=== PATIENT | female | born 1970 | race Caucasian/White ===

== ENCOUNTER → 2020-09-09 11:38 | Outpatient (CLI) | payer BC, SELFPAY ==
--- NOTE | ~2020-09-09 | MM_ITS ---
EXAMINATION: MM screening zehra BI w ashwini HISTORY: Screening mammogram TECHNIQUE: Craniocaudal and mediolateral oblique 3-D tomosynthesis images were obtained and synthetic 2-D images were generated. CAD analysis was submitted and interpreted. COMPARISON: No prior mammogram is available for comparison at this institution. BREAST PARENCHYMAL COMPOSITION: There are scattered areas of fibroglandular density. FINDINGS: RIGHT BREAST: There are obscured masses in the middle and posterior third of the upper outer quadrant . No suspicious architectural distortion or calcification are identified. LEFT BREAST: There is no evidence of suspicious mass, calcification, or architectural distortion to s uggest malignancy. IMPRESSION: 1. Obscured right breast masses. 2. Additional mammographic views and possible breast ultrasound are recommended. BI-RADS Category 0: Incomplete: Needs additional imaging evaluation. Reviewed, dictated and finalized at location A. IMPRESSION: 1. Obscured right breast masses. 2. Additional mammographic views and possible breast ultrasound are recommended . BI-RADS Category 0: Incomplete: Needs additional imaging evaluation.
== END ==
PROVIDERS: PCP Internal Medicine; Visit Provider Internal Medicine
DX: Z12.31 Encounter for screening mammogram for malignant neoplasm of breast (principal); R92.8 Other abnormal and inconclusive findings on diagnostic imaging of breast
CPT/HCPCS: 77063; 77067

== ENCOUNTER 2020-09-13 11:12 | Outpatient (CLI) | payer BC, SELFPAY ==
--- NOTE | ~2020-09-13 | MMUS_ITS ---
EXAMINATION: MM diagnostic mammo unilat RT, US breast RT limited HISTORY: Obscured right breast masses on screening mammogram TECHNIQUE: Additional 3-D tomosynthesis images of the right breast were performed and synthetic 2-D i mages were generated. CAD analysis was submitted and interpreted. High resolution limited right breas t ultrasound was performed. COMPARISON: 09/09/2020 FINDINGS: MAMMOGRAPHIC FINDINGS: There is a 7 mm oval, obscured, equal density mass in the middle third of the breast at the 11:00 loc ation 6 cm from the nipple. ULTRASOUND: There is a 4 mm cyst at the 11:00 location 8 cm from the nipple and a 3 mm cyst at the 12:00 location 2 cm from the nipple. No suspicious cystic or solid mass is identified. IMPRESSION: 1. No mammographic or sonographic evidence of malignancy. 2. Recommend routine screening mammography in one year. BI-RADS Category 2: Benign finding(s). Reviewed, dictated and finalized at location A. IMPRESSION: 1. No mammographic or sonographic evidence of malignancy. 2. Recommend routine screening mammography in one year. BI-RADS Category 2: Benign finding(s).
== END 2020-09-13 11:13 | disposition home or self-care (01) ==
LOC: ANHIMG 11:15
PROVIDERS: PCP Internal Medicine; Visit Provider Internal Medicine
DX: R92.8 Other abnormal and inconclusive findings on diagnostic imaging of breast (principal); N60.01 Solitary cyst of right breast
CPT/HCPCS: 76642; 77065

== ENCOUNTER 2021-11-01 18:57 | Emergency (ER) | payer BC, SELFPAY ==
[2021-11-01 19:13] VITALS: BP 154/89; PULSE 84; RESP 18; TEMP 36.6; O2SAT 98
--- NOTE | 2021-11-01 19:46 | ED.GENADULT ---
HPI - General Adult General Chief complaint: Epistaxis Stated complaint: nose bleed Source: patient Mode of arrival: ambulatory Limitations: no limitations History of Present Illness HPI narrative: Patient is a 51-year-old female who presents to the [facility] via POV for an evaluation of a nosebleed that she experienced today. Patient states her nosebleed at 1 PM and 6 PM. She states the bleeding was bright red blood. Patient reports having severe anxiety and was concerned something may be wrong prompting today's visit. Applied pressure resolved bleeding. She does not identify aggravating factors. Denies using intranasal sprays. Related Data Home Medications Medication Instructions Recorded Confirmed amitriptyline [Elavil] 10 mg PO BID 11/01/21 11/01/21 citalopram [Celexa] 40 mg PO DAILY 11/01/21 11/01/21 diltiazem HCl [Cardizem CD] 180 mg PO DAILY 11/01/21 11/01/21 fenofibric acid (choline) 135 mg PO DAILY 11/01/21 11/01/21 pantoprazole [Protonix] 40 mg PO DAILY 11/01/21 11/01/21 Allergies Allergy/AdvReac Type Severity Reaction Status Date / Time No Known Allergies Allergy Verified 11/01/21 19:38 Review of Systems Review of Systems: Denies fever, chills, sweats, change in appetite, headaches, poor p.o. intake, dizziness, paresthesias, weakness, chest pain, palpitations, skin color changes, shortness of breath PMFSH Past Medical History Medical History (Updated 11/01/21 @ 19:51 by Carlos Vargas, [facility], ) Anxiety GERD (gastroesophageal reflux disease) Hyperlipidemia Hypertension Comments I have reviewed and agree with the patient's past medical, surgical, social, and family hx as documented by the RN. There is no relevant family history pertinent to the presenting complaint. Exam Narrative: GENERAL: Well-appearing, well-nourished, and in no acute distress. HEAD: Normocephalic, atraumatic. No sinus tenderness or facial swelling appreciated. EYES: PERRLA and EOMI. No evidence of erythema, swelling, or drainage. ENT: Bilateral external ears and ear canals normal. Bilateral TMs are normal.No TM perforation. R NARE CLEAR. SEPTUM OF LEFT NARE IS MODERATELY EXCORIATED WITH CRUSTED BLOOD. Nares clear, no rhinorrhea or epistaxis. Bilateral turbinates without erythema/ swelling. Mucous membranes moist and pink. Uvula is midline without erythema and swelling. No evidence of petechial rash, cobblestoning, lesions, ulcers, erythema, swelling, exudates, peritonsillar abscess, tenting, or drooling. Breath odor and voice normal. NECK: Supple. No Lymphadenopathy or nuchal rigidity appreciated. CHEST: Bilateral lung bravo are clear to auscultation. No respiratory distress. No evidence of cough or pleuritic cp upon examination. HEART: Regular rate and rhythm. No murmur, gallop, or rub heard. EXTREMITIES: Normal range of motion. No edema. SKIN: Warm, dry, no rash. NEURO: No focal deficits. Alert and oriented x3. Course Course Level of Care: Express Care Visit Vital Signs Vital signs: Vital Signs Temperature 98 F 11/01/21 19:13 Pulse Rate 84 11/01/21 19:13 Respiratory Rate 18 11/01/21 19:13 Blood Pressure 154/89 H 11/01/21 19:13 Pulse Oximetry 98 11/01/21 19:13 Temperature 98 F 11/01/21 19:13 Pulse Rate 84 11/01/21 19:13 Respiratory Rate 18 11/01/21 19:13 Blood Pressure 154/89 H 11/01/21 19:13 Pulse Oximetry 98 11/01/21 19:13 Due to an elevated blood pressure, I had a detailed discussion with the patient and/or guardian regarding the need for follow-up with their primary care provider within the next 3-4 days. Patient verbalized understanding and agreed. Medical Decision Making Differential Diagnosis Differential Diagnosis: epistaxis, sinusitis, allergic rhinitis Medical Records Medical records reviewed: Yes I reviewed the external patient's medical records. Vital Signs Vital Signs: Vital Signs Temperature 98 F 11/01/21 19:13 Pulse Rate 84 11/01/21 19
== END 2021-11-01 19:54 | disposition home or self-care (01) ==
PROVIDERS: Emergency Provider Nurse Practitioner Family; PCP Internal Medicine
DX: R04.0 Epistaxis (principal); K21.9 Gastro-esophageal reflux disease without esophagitis; E78.5 Hyperlipidemia, unspecified; I10 Essential (primary) hypertension; F41.9 Anxiety disorder, unspecified
CPT/HCPCS: 99211; G0463

== ENCOUNTER 2021-11-06 15:04 | Emergency (ER) | payer BC, SELFPAY ==
[2021-11-06] VITALS (13 sets, daily range): BP systolic 136–160; BP diastolic 79–102; PULSE 88–171; RESP 17–36; O2SAT 92–98
--- NOTE | ~2021-11-06 | XR_ITS ---
EXAMINATION: XR chest 1V portable INDICATION: Tachycardia TECHNIQUE: Portable AP chest at 1530 hours COMPARISON: None available FINDINGS: The lungs are free of acute opacities. There is no pleural effusion or pneumothorax. The ca rdiomediastinal silhouette is normal. IMPRESSION: 1. No acute cardiopulmonary abnormality. Reviewed, dictated and finalized at location A.
[2021-11-06] MEDS: LORazepam INJ (*CRX) 2 MG/ML VIAL 1 MG IV PUSH (15:26)
--- NOTE | 2021-11-06 15:26 | ECG_ITS ---
Measurements Intervals [place] Rate: 170 P: FL: 0 QRS: 31 QRSD: 100 T: 153 QT: 266 QTc: 448 Interpretive Statements SUPRAVENTRICULAR TACHYCARDIA LOW QRS VOLTAGE IN LIMB LEADS VOLTAGE CRITERIA FOR LVH ST ELEVATION IN SEPTAL LEADS- CONSIDE ACUTE INFARCT OR REPOLARIZATION ABNORMALITY BORDERLINE ST-T WAVE ABNORMALITY- LAT/HIGH LAT LEADS ABNORMAL ECG Electronically Signed On 11-06-2021 16:32:34 CDT by Jeremy Truong D.O.
--- NOTE | 2021-11-06 15:27 | ED.ARRPALP ---
HPI - Arrhythmia/Palpitations General Chief Complaint: Arrhythmia/Palpitations Stated Complaint: palpitations Time Seen by Provider: 11/06/21 15:13 Source: patient Mode of arrival: ambulatory Limitations: no limitations History of Present Illness HPI narrative: Patient is 51 years old white female presented to the ED with sudden onset of palpitation 50 minutes prior to arrival to the emergency room. Patient was distressed, going to a vacation in 1 hour. She denies chest pain or shortness of breath. History of SVT, anxiety and depression currently on Cardizem CD 180 mg once a day for SVT controlled Related Data Home Medications Medication Instructions Recorded Confirmed amitriptyline [Elavil] 10 mg PO BID 11/01/21 11/01/21 citalopram [Celexa] 40 mg PO DAILY 11/01/21 11/01/21 diltiazem HCl [Cardizem CD] 180 mg PO DAILY 11/01/21 11/01/21 fenofibric acid (choline) 135 mg PO DAILY 11/01/21 11/01/21 pantoprazole [Protonix] 40 mg PO DAILY 11/01/21 11/01/21 Allergies Allergy/AdvReac Type Severity Reaction Status Date / Time No Known Allergies Allergy Verified 11/01/21 19:38 Review of Systems Review of Systems: All systems reviewed & are unremarkable except as noted in HPI and below PMFSH Past Medical History Medical History Anxiety GERD (gastroesophageal reflux disease) Hyperlipidemia Hypertension Exam Narrative: General appearance: Well-developed, well-nourished, anxious and panicking Skin: Normal color Head: Normocephalic, nontraumatic Eyes: Clear conjunctiva ENT: Oropharynx normal, ears normal, nose normal Neck: Supple, nontender Chest and respiratory: Airway patent, no respiratory distress, no accessory muscle use Heart: Tachycardia Abdomen: Soft, nontender, no organomegaly, quiet bowel sounds Vascular: Normal peripheral pulses, normal capillary refill. Musculoskeletal: Normal range of motion, nontender back Neurologic: Alert and oriented ?3, [employer] is normal as tested, no gross motor deficit Course Course Emergency Course: Patient presents with anxiety and SVT at 175 bpm, modified Valsalva maneuver, heart rate went down to sinus tachycardia at 115 bpm, patient feels much better, Ativan 1 mg IV given, heart rate was still sinus tachycardia at 120, blood pressure was elevated 60/100, Lopressor 5 mg IV every 5 minutes x 2 was given, heart rate currently is 90 bpm, blood pressure 138/80. Patient feeling much better and ready to go. Patient currently on Cardizem CD 180 mg once a day, I plan to increase the dose to to 40 mg once a day and to follow-up with her medical administrative when she comes back from the vacation. Vital Signs Vital signs: Vital Signs Pulse Rate 160 H 11/06/21 15:12 Respiratory Rate 33 H 11/06/21 15:12 Blood Pressure 142/79 H 11/06/21 15:12 Pulse Oximetry 97 11/06/21 15:12 Pulse Rate 92 11/06/21 16:08 Respiratory Rate 18 11/06/21 16:08 Blood Pressure 139/88 11/06/21 16:08 Pulse Oximetry 94 11/06/21 16:08 Procedures Other Procedure Procedure 1: Other Procedure: Modified Valsalva maneuver, SVT converted to sinus tachycardia. 15 minutes time consumed. MDM - Arrhythmia/Palpitations MDM Narrative Medical decision making narrative: SVT Differential Diagnosis Differential diagnosis: Likely palpitations, anxiety and supraventricular tachycardia Lab Data Result diagrams: 11/06/21 15:38 11/06/21 15:37 Labs: Lab Results 11/06/21 11/06/21 11/06/21 Range/Units 15:37 15:37 15:38 WBC 7.5 (4.5-10.0) K/mm3 RBC 4.95 (4.2-5.4) M/mm3 Hgb 15.7 H (12.0-15.0) g/dL Hct 47.3 H (37.0-47.0) %
[2021-11-06 15:45] LABS: Basophils Absolute Auto 0.1 K/mm3 (0.0-0.1); Basophils Percent Auto 0.7 % (0.2-1.2); Eosinophils Absolute Auto 0.1 K/mm3 (0-0.3); Eosinophils Percent Auto 0.8 % (0-4.4); Hematocrit 47.3 % (37.0-47.0); Hemoglobin 15.7 g/dL (12.0-15.0); Immature Granulocyte Absolute 0.02 K/mm3 (0.00-0.031); Immature Granulocyte Percent A 0.3 % (0-0.5); Lymphocytes Absolute Auto 2.68 K/mm3 (0.9-3.2); Lymphocytes Percent Auto 35.6 % (18.3-44.2); Mean Corpuscular HGB Conc 33.2 g/dl (32-36); Mean Corpuscular Hemoglobin 31.7 pg (26-34); Mean Corpuscular Volume 95.6 fl (80-100); Monocytes Absolute Auto 0.4 K/mm3 (0.1-0.6); Monocytes Percent Auto 5.3 % (2.6-8.5); Neutrophils Absolute Auto 4.3 K/mm3 (1.3-6.7); Neutrophils Percent Auto 57.3 % (45.5-73.1); Platelet Count Result 257 k/mm3 (150-375); Red Blood Count 4.95 M/mm3 (4.2-5.4); Red Cell Distribution Width 13.2 % (11.5-14.5); White Blood Count 7.5 K/mm3 (4.5-10.0)
[2021-11-06] MEDS: METOPROLOL TARTRATE INJ 5 MG/5 ML VIAL IV PUSH ×2 (15:53→16:02)
[2021-11-06 15:56] LABS: Alanine Aminotransferase 26 U/L (6-35); Albumin Level 4.6 g/dL (3.5-5.1); Alkaline Phosphatase 55 U/L (38-126); Anion Gap 11 mmol/L (8-16); Aspartate Amino Transferase 33 U/L (14-36); Bilirubin,Total 0.4 mg/dL (0.2-1.3); Blood Urea Nitrogen 15 mg/dL (7-17); Calcium 9.3 mg/dL (8.4-10.2); Carbon Dioxide 22 mmol/L (22-30); Chloride 110 mmol/L (98-107); Estimated CRCL calculation 54 ml/min; Estimated Glomerular Filt Rate 58; Glucose 135 mg/dL (65-110); Potassium 3.4 mmol/L (3.4-5.0); Sodium 143 mmol/L (137-145)
--- NOTE | 2021-11-06 15:57 | PC.NURSE ---
per EDP, metropolol q5mins first given at 1557
[2021-11-06 15:59] LABS: Prothrombin Time 13.1 Seconds (11.1-14.7)
--- NOTE | 2021-11-06 16:07 | PC.NURSE ---
2nd dose of metoprolol IVP per EDP
--- NOTE | 2021-11-06 16:11 | ECG_ITS ---
Measurements Intervals [place] Rate: 92 P: 64 [place]: 223 QRS: 18 QRSD: 87 T: 70 QT: 383 QTc: 475 Interpretive Statements SINUS RHYTHM WITH FIRST DEGREE AV BLOCK BORDERLINE R WAVE PROGRESSION, ANTERIOR LEADS BORDERLINE ST-T WAVE ABNORMALITY- HIGH LATERAL LEADS BASELINE ARTIFACT- V5 ABNORMAL ECG Electronically Signed On 11-06-2021 16:31:14 CDT by Jeremy Truong D.O.
[2021-11-06 16:13] LABS: NT Pro B Type Natriuretic Pept 129 pg/mL (5-100)
[2021-11-06 16:15] LABS: Troponin I < 0.012 ng/mL (0.000-0.034)
--- NOTE | 2021-11-06 16:15 | PC.NURSE ---
Per EDP Chamberlain, do not give 3rd dose of 5mg metoprolol.
== END 2021-11-06 16:53 | disposition home or self-care (01) ==
PROVIDERS: Emergency Provider Emergency Medicine; PCP Internal Medicine
DX: I47.1 Supraventricular tachycardia (principal); I10 Essential (primary) hypertension; F41.9 Anxiety disorder, unspecified; E78.5 Hyperlipidemia, unspecified; K21.9 Gastro-esophageal reflux disease without esophagitis; F32.A Depression, unspecified; R94.31 Abnormal electrocardiogram [ECG] [EKG]
CPT/HCPCS: 36415; 71045; 80053; 83880; 84484; 85025; 85610; 85730; 93005; 96374; 96375; 99284; J2060

== ENCOUNTER 2022-03-20 15:31 | Emergency (ER) | payer BC, SELFPAY ==
[2022-03-20 16:01] VITALS: BP 155/93; PULSE 93; RESP 18; TEMP 36.7; O2SAT 98
--- NOTE | 2022-03-20 16:58 | ED.GENADULT ---
HPI - General Adult General Chief complaint: Upper Respiratory Infection Stated complaint: fatigue,runny nose History of Present Illness HPI narrative: Patient states, I waited too long and just wanted a COVID test . She refused HPI and detailed examination. Related Data Home Medications Medication Instructions Recorded Confirmed amitriptyline 10 mg tablet 10 mg PO BID 11/01/21 03/20/22 citalopram 40 mg tablet (Celexa) 40 mg PO DAILY 11/01/21 03/20/22 diltiazem HCl 180 mg 180 mg PO DAILY 11/01/21 03/20/22 capsule,extended release 24 hr (Cardizem CD) fenofibric acid (choline) 135 mg 135 mg PO DAILY 11/01/21 03/20/22 capsule,delayed release Allergies Allergy/AdvReac Type Severity Reaction Status Date / Time No Known Allergies Allergy Verified 03/20/22 16:10 [facility] Past Medical History Medical History Anxiety GERD (gastroesophageal reflux disease) Hyperlipidemia Hypertension Exam Narrative: GENERAL: Well-appearing, well-nourished, and in no acute distress. HEAD: Normocephalic, atraumatic. No facial swelling appreciated. EYES: PERRLA and EOMI. No evidence of erythema, swelling, or drainage. ENT: Breath odor and voice normal. RESPIRATORY: No evidence of cough or pleuritic cp. EXTREMITIES: Normal range of motion. No edema. SKIN: Warm, dry, no rash. NEURO: No focal deficits. Alert and oriented x3. Course Course Emergency Course: The patient/guardian displays adequate decision making capability and despite a detailed discussion of alternatives, benefits, risks, and consequences refuses HPI and examination. Level of Care: Express Care Visit Vital Signs Vital signs: Vital Signs Temperature 98.1 F 03/20/22 16:01 Pulse Rate 93 03/20/22 16:01 Respiratory Rate 18 03/20/22 16:01 Blood Pressure 155/93 H 03/20/22 16:01 Pulse Oximetry 98 03/20/22 16:01 Oxygen Delivery Room Air 03/20/22 16:01 Temperature 98.1 F 03/20/22 16:01 Pulse Rate 93 03/20/22 16:01 Respiratory Rate 18 03/20/22 16:01 Blood Pressure 155/93 H 03/20/22 16:01 Pulse Oximetry 98 03/20/22 16:01 Oxygen Delivery Room Air 03/20/22 16:01 Medical Decision Making Differential Diagnosis Differential Diagnosis: URI, COVID, INFLUENZA Vital Signs Vital Signs: Vital Signs Temperature 98.1 F 03/20/22 16:01 Pulse Rate 93 03/20/22 16:01 Respiratory Rate 18 03/20/22 16:01 Blood Pressure 155/93 H 03/20/22 16:01 Pulse Oximetry 98 03/20/22 16:01 Oxygen Delivery Room Air 03/20/22 16:01 Temperature 98.1 F 03/20/22 16:01 Pulse Rate 93 03/20/22 16:01 Respiratory Rate 18 03/20/22 16:01 Blood Pressure 155/93 H 03/20/22 16:01 Pulse Oximetry 98 03/20/22 16:01 Oxygen Delivery Room Air 03/20/22 16:01 Due to an elevated blood pressure, I had a detailed discussion with the patient and/or guardian regarding the need for follow-up with their primary care provider within the next 3-4 days. Patient verbalized understanding and agreed. Lab Data Lab results narrative: RAPID COVID NEGATIVE Labs: Lab Results 03/20/22 Range/Units 16:08 POC SARS CoV-2 Ag Negative (Negative) Critical Care Time Critical Care Time Critical Care Time: No Discharge Plan Discharge Clinical Impression: Encounter for laboratory testing for COVID-19 virus Patient Disposition: Other Condition: Stable Prescriptions: No Action citalopram [Celexa] 40 mg Tablet 40 mg PO DAILY diltiazem HCl [Cardizem CD] 180 mg Capsule,Extended Release 24hr 180 mg PO DAILY amitriptyline [Elavil] 10 mg Tablet 10 mg PO BID fenofibric acid (choline) 135 mg capsule,delayed release(DR/EC) 135 mg PO DAILY Follow-up/Referrals: Allan,Bryson Nieto MD [Primary Care Provider] - Time of Disposition: 16:58
== END 2022-03-20 16:58 | disposition left against medical advice (07) ==
PROVIDERS: Emergency Provider Nurse Practitioner Family; PCP Internal Medicine
DX: Z20.822 Contact with and (suspected) exposure to COVID-19 (principal); F41.9 Anxiety disorder, unspecified; K21.9 Gastro-esophageal reflux disease without esophagitis; E78.5 Hyperlipidemia, unspecified; I10 Essential (primary) hypertension
CPT/HCPCS: 87426; 99213; C9803; G0463

== ENCOUNTER 2022-10-25 16:22 | Emergency (ER) | payer BC, SELFPAY ==
--- NOTE | 2022-10-25 16:24 | ED.GENADULT ---
HPI - General Adult General Chief complaint: Eye Problems Stated complaint: Rt Eye Irritation Time Seen by Provider: 10/25/22 16:24 Source: patient Mode of arrival: ambulatory Limitations: no limitations History of Present Illness HPI narrative: 52-year-old female patient presents to the [facility] with complaints of right eye pain that started yesterday. Patient states that she did sleep with her contacts in last night when she took that out morning started having pain towards upper portion of her eyeball. Denies any discharge but states that she has been having sensitivity to light and pain and feels like there is something in her eye. Related Data Home Medications Medication Instructions Recorded Confirmed amitriptyline 10 mg tablet 10 mg PO BID 11/01/21 10/25/22 citalopram 40 mg tablet (Celexa) 40 mg PO DAILY 11/01/21 10/25/22 diltiazem HCl 180 mg 180 mg PO DAILY 11/01/21 10/25/22 capsule,extended release 24 hr (Cardizem CD) fenofibric acid (choline) 135 mg 135 mg PO DAILY 11/01/21 10/25/22 capsule,delayed release olmesartan 20 mg tablet 20 mg PO DAILY 10/25/22 10/25/22 pantoprazole 40 mg tablet,delayed 40 mg PO DAILY 10/25/22 10/25/22 release Allergies Allergy/AdvReac Type Severity Reaction Status Date / Time No Known Allergies Allergy Verified 10/25/22 16:28 Review of Systems Review of Systems: CONSTITUTIONAL: Denies fever, chills, or sweats. EYES: Denies visual changes, Positive right eye redness, denies discharge. ENT: Denies rhinorrhea, congestion, sore throat, or otalgia. CARDIOVASCULAR: Denies chest pain, palpitations, or edema. RESPIRATORY: Denies cough or dyspnea. GASTROINTESTINAL: Denies abdominal pain, nausea, vomiting, or diarrhea. GENITOURINARY: Denies dysuria or hematuria. SKIN: Denies rash or itching. MUSCULOSKELETAL: Denies back pain, joint pain, or myalgia. NEUROLOGIC: Denies headache, numbness, or weakness. PSYCHIATRIC: Denies anxiety or depression. [facility] Past Medical History Medical History Anxiety GERD (gastroesophageal reflux disease) Hyperlipidemia Hypertension Comments At the time of my signature I agree with nursing past medical history, surgical, social, and family history. There is no relevant family history pertinent to the presenting complaint. Exam Narrative: GENERAL: Well-appearing, well-nourished, and in no acute distress. HEAD: Normocephalic, atraumatic. EYES: PERRLA and EOM intact without limitation or complaint of pain, no periorbital soft tissue swelling ,no erythema, warmth or tenderness noted, no obvious deformity. No crusting or swelling.clear tearing or draining.positive photophobia. No nystagmus No FB or lesion on lid eversion. Corneas grossly clear, no obvious FB or hyphens/hypopyon. injection to sclera every day. Lids and lashes clear. right eye was dyed and very small corneal abrasion was noted to 10:00 area of the cornea. ENT: Nares clear, no rhinorrhea or epistaxis. Mucous membranes moist. NECK: Supple. No lymphadenopathy CHEST: Clear to auscultation. No respiratory distress. HEART: Regular rate and rhythm. No murmur heard. Normal peripheral pulses. ABDOMEN: Soft, nontender, nondistended, normal active bowel sounds. EXTREMITIES: Normal range of motion. No edema. SKIN: Warm, dry, no rash. NEURO: No focal deficits. Alert and oriented x3. Course Course Level of Care: Express Care Visit Vital Signs Vital signs: Vital Signs Temperature 36.8 C 10/25/22 16:32 Pulse Rate 95 10/25/22 16:32 Respiratory Rate 18 10/25/22 16:32 Blood Pressure 135/79 10/25/22 16:32 Pulse Oximetry 97 10/25/22 16:32 Oxygen Delivery Room Air 10/25/22 16:32 Temperature 36.8 C 10/25/22 16:32 Pulse Rate 95 10/25/22 16:32 Respiratory Rate 18 10/25/22 16:32 Blood Pressure 135/79 10/25/22 16:32 Pulse Oximetry 97 10/25/22 16:32 Oxygen Delivery Room Air 10/25/22 16
[2022-10-25 16:32] VITALS: BP 135/79; PULSE 95; RESP 18; TEMP 36.8; O2SAT 97
== END 2022-10-25 16:45 | disposition home or self-care (01) ==
PROVIDERS: Emergency Provider Nurse Practitioner Family; PCP Internal Medicine
DX: S05.01XA Injury of conjunctiva and corneal abrasion without foreign body, right eye, initial encounter (principal); X58.XXXA Exposure to other specified factors, initial encounter; K21.9 Gastro-esophageal reflux disease without esophagitis; E78.5 Hyperlipidemia, unspecified; I10 Essential (primary) hypertension; F41.9 Anxiety disorder, unspecified
CPT/HCPCS: 99213; A9270; G0463

== ENCOUNTER → 2023-02-02 11:20 | Outpatient (CLI) | payer BC, SELFPAY ==
--- NOTE | ~2023-02-02 | CT_ITS ---
EXAMINATION:CT lung screening DATE: 02/02/2023 11:35 INDICATION: Personal history of nicotine dependence. Current smoker with 25 pack year history. TECHNIQUE: Computed tomography (CT) of the chest was performed without intravenous contrast. Automate d exposure control and iterative reconstruction technique were employed. The dose-length product (DLP ) was 98.78 mGy-cm. COMPARISON: None. FINDINGS: There is mild emphysema. There is mild scarring at right lung apex. There is a 3 mm nodule in right middle lobe. No pleural effusion. The heart size is normal. No pericardial effusion. There i s mild thoracic spondylosis. There is mild chronic anterior wedging of T11 and T12 vertebral bodies. IMPRESSION: 1. Lung-RADS category 2: Benign appearance or behavior. Continue annual screening with noncontrast lo w-dose chest CT in 12 months. Reviewed, dictated and finalized at location A. IMPRESSION: 1. Lung-RADS category 2: Benign appearance or behavior. Continue annual screeni ng with noncontrast low-dose chest CT in 12 months.
== END ==
PROVIDERS: PCP Internal Medicine; Visit Provider Internal Medicine
DX: Z12.2 Encounter for screening for malignant neoplasm of respiratory organs (principal); F17.210 Nicotine dependence, cigarettes, uncomplicated
CPT/HCPCS: 71271

== ENCOUNTER 2023-11-19 11:01 | Emergency (ER) | payer BC, SELFPAY ==
--- NOTE | 2023-11-19 11:07 | ED.SKABFB ---
HPI - Skin/Abscess/Foreign Bdy General Chief complaint: Skin/Abscess/Foreign Body Stated complaint: spider bite under left arm issues Time Seen by Provider: 11/19/23 11:10 Source: patient, RN notes reviewed and old records reviewed Mode of arrival: ambulatory Limitations: no limitations History of Present Illness HPI narrative: 53-year-old female presents to the [facility] with concerns of being bit by a large spider to the left axilla last night fall in the shower. Patient reports tenderness to the anterior left axilla. States that she woke up this morning and felt like her arm and hand was swollen as well as slight swelling to her face. No treatment prior to arrival Patient maintaining own secretions. No lip or tongue swelling. No hives Tenderness and increased pink area anterior portion the left axilla Related Data Home Medications Medication Instructions Recorded Confirmed amitriptyline 10 mg tablet 10 mg PO BID 11/01/21 11/19/23 citalopram 40 mg tablet (Celexa) 40 mg PO DAILY 11/01/21 11/19/23 diltiazem HCl 180 mg 180 mg PO DAILY 11/01/21 11/19/23 capsule,extended release 24 hr (Cardizem CD) fenofibric acid (choline) 135 mg 135 mg PO DAILY 11/01/21 11/19/23 capsule,delayed release olmesartan 20 mg tablet 20 mg PO DAILY 10/25/22 11/19/23 pantoprazole 40 mg tablet,delayed 40 mg PO DAILY 10/25/22 11/19/23 release Allergies Allergy/AdvReac Type Severity Reaction Status Date / Time No Known Allergies Allergy Verified 11/19/23 11:08 Review of Systems Review of Systems: All systems reviewed & are unremarkable except as noted in HPI and below Constitutional: Constitutional: Reports no additional constitutional complaints Eyes: Eyes: Reports no additional eye complaints ENT: Reports system reviewed and no additional complaints, except as documented Cardiovascular: Cardiovascular: Reports no additional cardiovascular complaints, Denies chest pain and Denies dyspnea Respiratory: Respiratory: Reports no additional respiratory complaints, Denies chest congestion, Denies cough and Denies dyspnea Gastrointestinal: Gastrointestinal: Reports no additional gastrointestinal complaints, Denies abdominal pain, Denies nausea and Denies vomiting Musculoskeletal: Musculoskeletal: Reports no additional musculoskeletal complaints Integumentary/Breasts: Skin/Breast: Reports as per HPI Neurologic: Reports system reviewed and no additional complaints, except as documented Psychiatric: Psychiatric: Reports no additional psychiatric complaints Allergic/Immunologic: Allergic/Immunologic: Reports as per [facility] Past Medical History Medical History Anxiety GERD (gastroesophageal reflux disease) Hyperlipidemia Hypertension Comments At the time of my signature, I reviewed and agree with the nursing past medical, surgical, social, and family history. There is no relevant family history pertinent to the patient complaint. Exam Const: General: cooperative, healthy appearing, comfortable, no acute distress, well developed, alert and well nourished Nutritional Appearance: well nourished Orientation/consciousness: patient oriented x3 Limitations: no limitations HENMT: Head: normal to inspection Ears: hearing grossly normal bilaterally, external ears normal, TM's normal bilaterally, EAC's normal, mastoids normal and no periauricular adenopathy Face/Nose/Sinus: Normal external nose present, Normal nares present, Normal nasal mucous membranes and turbinates present, normal facial exam and face symmetric Face and sinus: normal facial exam, sinuses nontender and face symmetric Throat: posterior oropharynx normal, uvula midline and no uvular edema Eyes: General: appearance normal, both eyes and all related structures Alignment and Position: alignment normal Periorbital: periorbital findings normal Pupils: Equal, round and reactive pupils present EOM: EOMs intact bilate
[2023-11-19 11:10] VITALS: BP 123/83; PULSE 104; RESP 16; TEMP 37.3; O2SAT 99
== END 2023-11-19 11:23 | disposition home or self-care (01) ==
PROVIDERS: Emergency Provider Nurse Practitioner; PCP Internal Medicine
DX: L50.9 Urticaria, unspecified (principal); T78.40XA Allergy, unspecified, initial encounter; K21.9 Gastro-esophageal reflux disease without esophagitis; E78.5 Hyperlipidemia, unspecified; I10 Essential (primary) hypertension; F41.9 Anxiety disorder, unspecified
CPT/HCPCS: 99211; G0463

== ENCOUNTER 2024-12-11 09:16 | Outpatient (CLI) | payer BC, SELFPAY ==
--- NOTE | ~2024-12-11 | CT_ITS ---
CT Scan of the Chest without Contrast: Clinical Indication: Lung cancer screening, nicotine dependence Technique: Contiguous sections were acquired throughout the chest without intravenous contrast. Dose reduction technique was used on this scan by utilizing automated exposure control and iterative recon struction technique. The dose-length product (DLP) was 76.37 mGy-cm. COMPARISON: 02/02/2023 Findings: There is no evidence of any significant mediastinal, hilar or axillary lymphadenopathy. The mediastin al soft tissues appear normal. There is no evidence of pleural or pericardial effusion. 3 mm right middle lobe pulmonary nodule present (axial image 71). There is mild to moderate upper lob e emphysema. Images through the upper abdomen reveal no abnormalities. Impression: Lung RADS 2: Benign appearance. 12 month follow-up screening CT advised. Reviewed, dictated and finalized at [facility]. Impression: Lung RADS 2: Benign appearance. 12 month follow-up screening CT advised.
--- NOTE | ~2024-12-11 | MM_ITS ---
EXAMINATION: MM screening zehra BI w ashwini HISTORY: Screening mammogram TECHNIQUE: Craniocaudal and mediolateral oblique 3-D tomosynthesis images were obtained and synthetic 2-D images were generated. CAD analysis was submitted and interpreted. COMPARISON: 09/09/2020 BREAST PARENCHYMAL COMPOSITION:Not Dense. There are scattered areas of fibroglandular density. FINDINGS: No suspicious mass, calcification, or architectural distortion are identified in either david ast to suggest malignancy. There has been no suspicious interval change. IMPRESSION: No mammographic evidence of malignancy. Recommend routine screening mammography in one year. BI-RADS Category 1: Negative Reviewed, dictated and finalized at location .
== END 2024-12-11 09:17 | disposition home or self-care (01) ==
PROVIDERS: PCP Internal Medicine; Visit Provider Internal Medicine
DX: Z12.2 Encounter for screening for malignant neoplasm of respiratory organs (principal); Z87.891 Personal history of nicotine dependence; Z12.31 Encounter for screening mammogram for malignant neoplasm of breast
CPT/HCPCS: 71271; 77063; 77067